=== PATIENT | male | born 1960 | race Caucasian/White ===

== ENCOUNTER → 2017-04-08 | Day surgery (SDC) | payer OTHER ==
[~2017-04-08] MED LIST: HTN MED; METF500 PO; PROPOFOL 500 MG/50 ML BTL IV ONE
--- NOTE | 2017-04-08 09:17 | GIPROC ---
[facility] [address] [facility], [address] COLONOSCOPY PROCEDURE REPORT EXAM DATE: 04/08/2017 PATIENT NAME: Matthew Villalobos MR #: [id number] BIRTHDATE: 1960 ENDOSCOPIST: Alton Coronado MD ORDER #: [id number] REMOTE SENSING PROGRAM MANAGER: STATUS: outpatient INDICATIONS: The patient is a 56 yr old male here for a colonoscopy due to average risk patient for colon cancer PROCEDURE PERFORMED: Colonoscopy with polypectomy Colonoscopy with ablation MEDICATIONS: None and Per Anesthesia. PREP QUALITY: fair ESTIMATED BLOOD LOSS: None CONSENT: The patient understands the risks and benefits of the procedure and understands that these risks include, but are not limited to: sedation, allergic reaction, infection, perforation and/or bleeding. Alternative means of evaluation and treatment include, among others: physical exam, x-rays, and/or surgical intervention. The patient elects to proceed with this endoscopic procedure. medical equipment was checked for proper function. Hand hygiene and appropriate measures for infection prevention was taken. After the risks, benefits and alternatives of the procedure were thoroughly explained, Informed consent was verified, confirmed and timeout was successfully executed by the treatment team. A digital exam revealed no abnormalities of the rectum The EC-3490Li ([id number]) endoscope was introduced through the anus and advanced to the cecum, which was identified by both the appendix and ileocecal valve. The instrument was then slowly withdrawn as the colon was fully examined. COLON FINDINGS: Two diminutive smooth sessile polyps were found in the transverse colon and rectum. Destruction of tissue via ablation was attempted. There was no blood loss from maneuver. A large smooth pedunculated polyp was found in the descending colon. A polypectomy was performed using snare cautery. The resection was complete and the polyp tissue was completely retrieved. Four medium sized smooth sessile polyps were found in the transverse colon, descending colon, sigmoid colon, and rectum. A polypectomy was performed using snare cautery. The resection was complete and the polyp tissue was completely retrieved. The colon mucosa was otherwise normal. Retroflexed views revealed no abnormalities The scope was then completely withdrawn from the patient and the procedure terminated. PROCEDURE WITHDRAWAL TIME:20.2minutes ADVERSE EVENTS: There were no complications. IMPRESSIONS: 1. Two diminutive sessile polyps were found in the transverse colon and rectum; Destruction of tissue via ablation was attempted 2. A large pedunculated polyp was found in the descending colon; polypectomy was performed using snare cautery 3. Four medium sized sessile polyps were found in the transverse colon, descending colon, sigmoid colon, and rectum; polypectomy was performed using snare cautery 4. The colon mucosa was otherwise normal 5. Retroflexed views revealed no abnormalities 6. Revealed no abnormalities of the rectum RECOMMENDATIONS: 1. Await biopsy results. Biopsy results will not be ready for 7-10 days. If you don't hear from us in two weeks, call our office for results. 2. High fiber diet 3. Yearly hemoccult 4. Follow-up: GI Clinic PRN RECALL: Return 1 year Colonoscopy Alton Coronado MD eSigned: Alton Coronado MD 04/08/2017 9:16 AM cc: [facility] and Jany Barton M.D. PATIENT NAME: Matthew Villalobos MR#: [id number]
--- NOTE | 2017-04-08 09:19 | GIPROC ---
[facility] [address] [facility], [address] EGD PROCEDURE REPORT EXAM DATE: 04/08/2017 PATIENT NAME: Matthew Villalobos MR #: [id number] BIRTHDATE: 1960 ATTENDING: Alton Coronado MD ORDER #: [id number] MEMBERSHIP DIRECTOR: STATUS: outpatient INDICATIONS: The patient is a 56 yr old male here for an EGD due to history of esophageal reflux PROCEDURE PERFORMED: EGD w/ biopsy MEDICATIONS: None, Per Anesthesia, None, and Per Anesthesia. TOPICAL ANESTHETIC: CONSENT: The patient understands the risks and benefits of the procedure and understands that these risks include, but are not limited to: sedation, allergic reaction, infection, perforation and/or bleeding. Alternative means of evaluation and treatment include, among others: physical exam, x-rays, and/or surgical intervention. The patient elects to proceed with this endoscopic procedure. medical equipment was checked for proper function. Hand hygiene and appropriate measures for infection prevention was taken. After the risks, benefits and alternatives of the procedure were thoroughly explained, Informed consent was verified, confirmed and timeout was successfully executed by the treatment team. The patient was anesthetized with topical anesthesia and the EC-3490Li ([id number]) endoscope was introduced through the mouth and advanced to the second portion of the duodenum. Retroflexed views revealed no abnormalities The gastroscope was then slowly withdrawn and removed. ESOPHAGUS: A linear patch of abnormal mucosa was found in the distal esophagus. The mucosa was erythematous. Multiple biopsies were performed. The endoscopy was otherwise normal. ADVERSE EVENTS: There were no complications. IMPRESSIONS: 1. Linear abnormal mucosa was found in the distal esophagus; The mucosa was erythematous; multiple biopsies were performed 2. Normal endoscopy otherwise 3. Retroflexed views revealed no abnormalities RECOMMENDATIONS: 1. Await biopsy results. Biopsy results will not be ready for 7-10 days. If you don't hear from us in two weeks, call our office for biopsy results. 2. Anti-reflux regimen 3. Follow-up: GI clinic PRN PATIENT CONDITION: stable DISPOSITION: Home REPEAT EXAM: Alton Coronado MD eSigned: Alton Coronado MD 04/08/2017 9:18 AM cc: Riaz Mancini [facility] Olivia Barton M.D.
== END | disposition home or self-care (01) ==
LOC: ESDC 07:28
PROVIDERS: ATTEND Internal Medicine Gastroenterology
DX: Z12.11 Encounter for screening for malignant neoplasm of colon (principal); D12.3 Benign neoplasm of transverse colon; K62.1 Rectal polyp; D12.4 Benign neoplasm of descending colon; D12.5 Benign neoplasm of sigmoid colon; K21.9 Gastro-esophageal reflux disease without esophagitis
CPT/HCPCS: 00740; 00810; 43239; 45385; 45388; 88305; J3010